=== PATIENT | female | born 1950 | race Two or more races ===

== ENCOUNTER 2017-09-15 13:46 | Emergency (ER) | payer MEDICAID ==
[~2017-09-15] VITALS: Ht 157.5 cm; Wt 83.9 kg
[2017-09-15 13:54] VITALS: Ht 157.5 cm; Wt 83.9 kg
[2017-09-15 15:16] VITALS: BP 145/73
== END 2017-09-15 15:16 | disposition home or self-care (01) ==
LOC: ED 13:46
DX: L03.032 Cellulitis of left toe (principal); I10 Essential (primary) hypertension; E11.9 Type 2 diabetes mellitus without complications
CPT/HCPCS: 90715; J0696; J2001

== ENCOUNTER → 2017-09-25 | Outpatient (CLI) | payer SELFPAY | END | disposition home or self-care (01) | LOC: RD 13:08 | DX: L08.9 Local infection of the skin and subcutaneous tissue, unspecified (principal) ==